=== PATIENT | female | born 1940 | race Caucasian/White ===

== ENCOUNTER 2017-05-29 09:00 | Inpatient (IN) | payer OTHER ==
[~2017-05-29] VITALS: Ht 162.6 cm; Wt 83.0 kg
[~2017-05-29 09:00] MED LIST: ASA-EC81 MG; CARDIZEM LA240 MG; COZAAR100 MG; EXFORGE 5-320 M1 TAB; HYDROCHLOROTHIAZ1 GM; HYZAAR 100-121 UDTAB; HYZAAR 50-12.1 UDTAB PO; PAXIL20 MG; TEKTURNA150 MG
[2017-05-29] MEDS ORDERED: COZAAR100 MG PO (12:32)
[2017-05-29] MEDS ORDERED: [UNRECOGNIZED DRUG - OTHER] PO (12:33)
[2017-05-29] MEDS ORDERED: PAXIL20 MG PO (12:34)
[2017-05-29] MEDS ORDERED: CARDIZEM CD240 MG PO (12:34)
[2017-05-29] MEDS ORDERED: HYDROCHLOROTHIA25 MG PO (12:34)
[2017-06-23] MEDS ORDERED: Intestinex CAP PO (08:43)
[2017-06-23] MEDS ORDERED: TRAM1TAB98 PO (08:43)
== END 2017-06-23 12:30 | disposition home or self-care (01) | DRG 330 ==
LOC: SURH 06-05 09:00 → O/R 06-19 12:00 → SURG 06-19 12:00
PROVIDERS: Surgery; Urology
PROC: 0T788DZ Dilation of Bilateral Ureters with Intraluminal Device, Via Natural or Artificial Opening Endoscopic (ICD-10-PCS; 2017-06-19)
PROC: 0WQF4ZZ Repair Abdominal Wall, Percutaneous Endoscopic Approach (ICD-10-PCS; principal; 2017-06-19 20:30)
PROC: 0DQE4ZZ Repair Large Intestine, Percutaneous Endoscopic Approach (ICD-10-PCS; 2017-06-19 20:30)
DX: K57.32 Diverticulitis of large intestine without perforation or abscess without bleeding (principal); N32.1 Vesicointestinal fistula; N17.8 Other acute kidney failure; Z43.3 Encounter for attention to colostomy; I10 Essential (primary) hypertension; E11.9 Type 2 diabetes mellitus without complications; I48.0 Paroxysmal atrial fibrillation; N99.0 Postprocedural (acute) (chronic) kidney failure; F06.8 Other specified mental disorders due to known physiological condition

== ENCOUNTER 2018-04-02 06:45 | Outpatient (CLI) | payer OTHER ==
[~2018-04-02 06:45] MED LIST changes: +CARDIZEM CD240 MG PO; +COZAAR100 MG PO; +HYDROCHLOROTHIA25 MG PO; +Intestinex CAP PO; +PAXIL20 MG PO; +TRAM1TAB98 PO; +[UNRECOGNIZED DRUG - OTHER] PO
== END 2018-04-02 17:38 | disposition home or self-care (01) ==
LOC: LAB 06:45
DX: I10 Essential (primary) hypertension (principal); E11.9 Type 2 diabetes mellitus without complications; E03.8 Other specified hypothyroidism; E78.2 Mixed hyperlipidemia

== ENCOUNTER 2018-04-02 08:42 | Outpatient (CLI) | payer OTHER | END 2018-04-02 14:50 | disposition home or self-care (01) | LOC: TOM 08:42 | DX: S09.8XXA Other specified injuries of head, initial encounter (principal) ==

== ENCOUNTER 2018-07-26 09:29 | Outpatient (CLI) | payer OTHER | END 2018-07-26 11:31 | disposition home or self-care (01) | LOC: RAD 09:29 | DX: M12.9 Arthropathy, unspecified (principal); M19.90 Unspecified osteoarthritis, unspecified site ==

== ENCOUNTER → 2020-04-27 | Outpatient (CLI) | payer OTHER | END | disposition home or self-care (01) | LOC: TOM 12:47 | PROVIDERS: ATTEND Urology | DX: G93.89 Other specified disorders of brain (principal) ==

== ENCOUNTER 2020-10-15 07:55 | Outpatient (CLI) | payer OTHER | END 2020-10-15 08:01 | disposition home or self-care (01) | LOC: NUCLEAR 07:55 | PROVIDERS: ATTEND Internal Medicine Cardiovascular Disease | DX: R55 Syncope and collapse (principal); R07.89 Other chest pain ==